=== PATIENT | female | born 1990 | race Caucasian/White ===

== ENCOUNTER 2020-12-13 02:18 | Inpatient (IN) | payer MEDICAID, SELFPAY ==
[~2020-12-13] VITALS: Ht 157.5 cm; Wt 70.5 kg
[2020-12-13] VITALS (28 sets, daily range): BP systolic 118–195; BP diastolic 61–103
[2020-12-13 04:17] LABS: HEMATOCRIT 38.3 % (36.0-47.0); HEMOGLOBIN 13.2 g/dl (12.0-15.5); MEAN CORPUSCULAR HEMOGLOBIN 32.1 pg (27.0-33.0); MEAN CORPUSCULAR HGB CONC 34.5 g/dl (32.0-36.5); MEAN CORPUSCULAR VOLUME 93.2 fl (80.0-96.0); PLATELET COUNT, AUTOMATED 174 10^3/uL (150-450); RED BLOOD COUNT 4.11 10^6/uL (4.00-5.40); WHITE BLOOD COUNT 10.7 10^3/uL (4.0-10.0)
[2020-12-13] MEDS ORDERED: LABETALOL 100MG/20ML VIAL IV STA ×2 (04:31→05:42)
[2020-12-13] MEDS ORDERED: LABETALOL 100MG/20ML VIAL As Ordered ONE (04:32)
[2020-12-13] MEDS: LR 1,000 ML IV SCH ×2 (04:35→06:18)
[2020-12-13 04:40] LABS: ALT/SGPT 22 U/L (12-78); BILIRUBIN,TOTAL 0.2 MG/DL (0.2-1.0); GLOMERULAR FILTRATION RATE > 60.0 (>60); LDH LACTATE DEHYDROGENASE 144 U/L (84-246); URIC ACID 4.4 MG/DL (2.6-6.0)
[2020-12-13] MEDS ORDERED: LR 1,000 ML IV SCH ×2 (04:45→09:55)
[2020-12-13] MEDS ORDERED: ALBU83IN INH (04:56)
[2020-12-13] MEDS ORDERED: FLON27.5 NARES (04:56)
[2020-12-13] MEDS ORDERED: PRENTAB9 PO (04:56)
[2020-12-13] MEDS ORDERED: PROZ20CA11 PO (04:56)
[2020-12-13] MEDS ORDERED: HOME MED LIST COMPLETE! XX SCH (05:00)
--- NOTE | 2020-12-13 07:59 | HPEPDOC ---
Obstetrical History & Physical General Date of Admission Dec 13, 2020 at 04:42 History of Present Illness Alley is a 30-year-old 1 at 35 weeks 6 days who was a transfer from [facility] with severe intrauterine growth restriction. This is a patient with poor care and has been noncompliant with her care. She was seen 12/11/20 after 10 weeks where she had a growth ultrasound demonstrating a fetus less than the 1st percentile with an EFW of 1600 g. She was initially admitted at hospital where she received a course of steroids. She was later transferred this morning for further management and care. Upon arrival, patient denied headache visual changes abdominal pain. She reported active movement. No vaginal bleeding leakage of fluid or contractions. She states that her blood pressure was elevated prior to discharge as well as in the ambulance. Upon arrival her blood pressures were severely elevated blood pressures, 190s over 100. Patient received 2 doses of IV labetalol shortly after arrival. Information Provided By: Patient Age: 30 : 1 Care Care: Limited Care Dating Final EDC: Jan 12, 2021 Final EDC by: 2nd trimester (US) EGA at Admission: 35 Past Medical History Past Obstetrical History : Past Obstetrical History: Primgravida [employer] History: No pertinent history Past Medical History Surgical History: Denies/None, Tonsilectomy Social History Marital Status: Single Psychosocial History: Depression * Smoker: current smoker Drugs: cocaine Allergies Coded Allergies: No Known Allergies (Verified Allergy, Unknown, 12/13/20) Medications Scheduled Fluoxetine HCl (Prozac) 20 Mg Capsule, 20 MG PO DAILY No.137/Iron/Folic Acd ( Vitamin Tablet) 1 Each Tablet, 1 TAB PO DAILY Scheduled PRN Albuterol Sulf (Albuterol Sulfate) 2.5 Mg/3 Ml Vial.neb, 2.5 MG INH Q4HP PRN for SHORTNESS OF BREATH Fluticasone Furoate (Flonase Sensimist) 5.9 Ml [place].susp, 2 PUFF NARES DAILY PRN for SHORTNESS OF BREATH Physical Examination Physical Examination GENERAL: Alert and oriented times three. BREAST: . ABDOMEN: Gravid and non-tender to touch. FETUS: Is vertex (VTX) by sterile vaginal examination (SVE), fetus is vertex (VTX) by Antonio. HEART RATE: Regular rate and rhythm. LUNGS: Clear to auscultation (CTA). Vital Signs/I&O Vital Signs Date Time Temp Pulse Resp B/P (MAP) Pulse Ox O2 Delivery O2 Flow Rate FiO2 12/13/20 06:01 78 195/103 (133) 12/13/20 03:45 96.8 Laboratory Data 24H LABS Laboratory Tests 2 12/13/20 04:03: Hepatitis B Surface Antigen NEGATIVEL 12/13/20 04:06: Nucleated Red Blood Cells % (auto) 0.0, Glomerular Filtration Rate > 60.0, Uric Acid 4.4, Total Bilirubin 0.2, Aspartate Amino Transf (AST/SGOT) 17, Alanine Aminotransferase (ALT/SGPT) 22, Lactate Dehydrogenase 144 CBC/BMP Laboratory Tests 12/13/20 04:06 Pertinent Laboratoy Data Blood Type: A+ RBC Antibody Screen: Negative Hepatitis B: Negative Anatomy Ultrasound Estimated Weight (grams): 1600 Steroid Therapy Date #1: Dec 11, 2020 Date #2: Dec 12, 2020 Vaginal Examination Dilation: None Station: -2 Cervical Consistency: Firm Cervical Position: Posterior Presentation: Cephalic presentation Assessment Variability: Moderate Decelerations: Variable Tocometer Contractions: No Assessment/Plan Assessment 30-year-old 1 at 35w6d, with intrauterine growth restriction less than the 1st percentile Preeclampsia with severe features based on severely elevated blood pressures Plan Patient has been thoroughly counseled in regards to her diagnosis. I discussed recommendation for delivery based on intrauterine growth restriction along with preeclampsia with severe features. Patient has completed a course of steroids for lung maturity. tracing overall is reassuring with intermittent variable decelerations, at time category 2 tracing. I discussed attempted induction of labor, first with a negative contraction stress test or proceeding with primary section consider remoteness from vaginal delivery in light of intrauterine growth restriction and severe preeclampsia. Discussed risks with both and after consultation patient and her family has decided to proceed with section. MILLY AVINA MD. Dec 13, 2020 07:59
[2020-12-13] MEDS ORDERED: BICITRA 30ML SOLN UDC PO ONE (08:00)
[2020-12-13] MEDS ORDERED: ceFAZolin SOD 2 GM in IV 1 EA IV ONE (08:00)
[2020-12-13] MEDS ORDERED: OXYTOCIN 30 UNITS IN 0.9% NaCl 500ML IV BAG (J2590) As Ordered ONE ×2 (08:10→10:11)
[2020-12-13] MEDS ORDERED: MORPHINE PRES-FREE INJ 10 MG/10 ML VIAL (J2274) As Ordered ONE (08:10)
[2020-12-13] MEDS ORDERED: diphenhydrAMINE 50MG/ML VIAL (J1200) IV PRN (08:44)
[2020-12-13] MEDS ORDERED: NALBUPHINE HCL 10 MG/ML AMP (J2300) IV PRN ×2 (08:44→10:50)
[2020-12-13] MEDS ORDERED: NALOXONE INJ 0.4MG/1ML VIAL (J2310 PER 1MG) IV PRN ×2 (08:44)
[2020-12-13] MEDS ORDERED: METOCLOPRAMIDE INJ 10MG/2ML VIAL (J2765 PER 1) IV PRN (08:44)
[2020-12-13] MEDS ORDERED: ONDANSETRON 4MG/2ML VIAL IV PRN ×3 (08:44→10:50)
[2020-12-13] MEDS ORDERED: ePHEDrine SULFATE 25 MG/5 ML(5MG/ML) SYRINGE As Ordered ONE (08:54)
[2020-12-13] MEDS ORDERED: KETOROLAC 60MG 2ML VIAL As Ordered ONE (08:58)
[2020-12-13] MEDS ORDERED: ONDANSETRON 4MG/2ML VIAL As Ordered ONE (08:58)
[2020-12-13] MEDS ORDERED: dexameTHASONE 4 MG/ML 1ML VIAL (J1100 PER 1MG) As Ordered ONE (08:58)
[2020-12-13] MEDS ORDERED: MAGNESIUM *L&D* 4GM/100ML BAG (40MG/ML) As Ordered ONE (09:35)
[2020-12-13] MEDS ORDERED: OXYTOCIN DRIP 30 UNITS in IV 1 EA IV SCH (09:55)
[2020-12-13] MEDS ORDERED: RHOGAM 300 MCG (1500 IU) INJ (J2790) IM SCH (09:55)
[2020-12-13] MEDS ORDERED: CALCIUM GLUCONATE 1,000 MG in D5W MINI-BAG PLUS 100 ML IV PRN (09:55)
[2020-12-13] MEDS ORDERED: MOM 30ML SUSPENSION UDC PO PRN (09:55)
[2020-12-13] MEDS ORDERED: MEASLES,MUMPS,RUBELLA VACCINE INJ (MMR-II) (90707) SC SCH (09:55)
[2020-12-13] MEDS ORDERED: SIMETHICONE 80MG CHEW TAB PO PRN (09:55)
[2020-12-13] MEDS ORDERED: MAG Sulf (L&D) 4 GM/100 ML 4 GM in IV 1 EA IV ONE (10:00)
--- NOTE | 2020-12-13 10:00 | ROOPDOC ---
[facility] Report Of Operation Report of Operation DATE OF PROCEDURE: 12/13/20 SURGEON: Autumn Londono M.D. SACK FILLER: None PROCEDURE: Primary section PREOPERATIVE DIAGNOSIS: 1. Preeclampsia with severe features remote from delivery 2. Intrauterine uterine growth restriction with less than the 1 % POSTOPERATIVE DIAGNOSIS: 1. Preeclampsia with severe features remote from delivery 2. Intrauterine uterine growth restriction with less than the 1 % ANESTHESIA: Spinal ESTIMATED BLOOD LOSS: 500 mL URINE OUTPUT: 125 mL INTRAVENOUS FLUIDS: 1900 mL of lactated Ringer's solution PREOPERATIVE ANTIBIOTICS:. 2 g of Ancef OPERATIVE FINDINGS: Liveborn male infant, Apgars 6, 8 and 9. Weight 4 pounds or 1810 g SPECIMENS: Placenta DESCRIPTION OF PROCEDURE: After informed consent was obtained and written consent was reviewed. The patient was brought to the operating room where spinal anesthesia was placed. She was then placed in the supine position with a left lateral tilt. Hemphill catheter was placed and to gravity. Patient was then prepped and draped in the normal sterile fashion. A timeout operating room was performed identifying the patient, procedure be performed as well as drug allergies. Anesthesia was tested and deemed to be adequate. Pfannenstiel skin incision was made and this was carried down to the underlying rectus fascia. The fascia was then scored and this incision was extended bilaterally. The fascia was then dissected off the underlying rectus muscle superiorly and inferiorly. The rectus muscles were then in the midline. The peritoneum is then entered. Vesicouterine peritoneum was then tented and excised and a bladder flap was created. Mobius retractor was then placed. Next, a curvilinear incision was then made in the lower uterine segment. Amniotomy was performed, productive, meconium stained fluid. The head was brought to the level of the incision atraumatically and delivered along the shoulders and corpus. The cord was clamped x2. The infant was brought over to the warmer with a good cry. Placenta was drained and delivered grossly intact. The uterus was cleared of all clots and debris and the uterine incision was then closed using 0 Vicryl in a running locking fashion followed by a second layer of 0 Vicryl in a running nonlocking fashion for imbrication. The abdomen suctioned. Surgical sites reinspected and noted be hemostatic. The retractor was then removed. The anterior peritoneum was then reapproximated with 3-0 Vicryl. The rectus muscles were reapproximated 3-0 Vicryl. The fascia was then closed using 0 Vicryl in a running nonlocking fashion. The subcutaneous tissues was then irrigated and suctioned. Subcutaneous tissue was reapproximated using 3-0 Vicryl. Several subdermal stitch is placed using 3-0 Vicryl and the skin was closed with 4-0 Monocryl and subcuticular fashion. This incision was then cleaned and dried and was dressed. The patient was then taken to recovery in stable condition. All counts were correct. . AUTUMN LONDONO MD. Dec 13, 2020 10:00
[2020-12-13] MEDS ORDERED: MAGNESIUM SULFATE 4% INJ 20GM/500ML (40MG/ML) As Ordered ONE (10:26)
[2020-12-13] MEDS: MAG Sulf (OBGYN) 20GM/500ML 20,000 MG in IV 1 EA IV SCH ×2 (10:41→19:34)
[2020-12-13] MEDS ORDERED: HYDROMORPHONE HCL 0.5 MG/ 0.5 ML SYRINGE (J1170 PER 1) IV PRN (10:50)
[2020-12-13] MEDS ORDERED: oxyCODONE 5MG TAB PO PRN (10:50)
[2020-12-13] MEDS ORDERED: fentaNYL 100 MCG/2 ML INJECTION (J3010) IV PRN (10:50)
[2020-12-13] MEDS ORDERED: MEPERIDINE INJ 25 MG/ML VIAL (J2175) IV PRN (10:50)
[2020-12-13] MEDS: KETOROLAC 30 MG/ML 1ML VIAL IV SCH ×2 (16:20→22:04)
[2020-12-13] MEDS: DOCUSATE SODIUM 100MG CAPSULE PO SCH (22:05)
[2020-12-13] MEDS ORDERED: NICOTINE 21MG/24HR 1 EA TRANSDERMAL TD SCH (23:00)
[2020-12-14 02:00] VITALS: BP 110/59
[2020-12-14] MEDS: KETOROLAC 30 MG/ML 1ML VIAL IV SCH (04:07)
[2020-12-14 06:00] VITALS: BP 103/58
[2020-12-14 07:28] LABS: HEMATOCRIT 32.7 % (36.0-47.0); MEAN CORPUSCULAR HEMOGLOBIN 32.1 pg (27.0-33.0); MEAN CORPUSCULAR HGB CONC 33.6 g/dl (32.0-36.5); MEAN CORPUSCULAR VOLUME 95.3 fl (80.0-96.0); PLATELET COUNT, AUTOMATED 129 10^3/uL (150-450); RED BLOOD COUNT 3.43 10^6/uL (4.00-5.40); WHITE BLOOD COUNT 13.6 10^3/uL (4.0-10.0)
[2020-12-14] MEDS ORDERED: NICOTINE 21MG/24HR 1 EA TRANSDERMAL TD SCH (07:37)
[2020-12-14] MEDS: PRENATAL VITAMINS CHEWABLE TABLET PO SCH (08:12)
[2020-12-14] MEDS: DOCUSATE SODIUM 100MG CAPSULE PO SCH ×2 (08:12→20:39)
[2020-12-14] MEDS: FLUoxetine 20 MG CAP PO SCH (08:12)
[2020-12-14] MEDS: PERCOCET 5MG/325MG TAB PO PRN ×3 (08:13→22:35)
--- NOTE | 2020-12-14 08:24 | IPNPDOC ---
Progress Note Date of Service: Dec 14, 2020 Progress Note SUBJECT: Patient is currently off magnesium sulfate for neuro protection following delivery. She is remained asymptomatic denying headache visual changes. Doing well without complaints. Ambulating, voiding and pain is well- controlled. Reports minimal lochia. OBJECTIVE: VITAL SIGNS: Within normal limits, afebrile. Alert and oriented times three. Abdomen: Fundus firm at U-2. Soft, NTTP. Incision: dressed Ext: neg calf tenderness. ASSESSMENT: /postoperative day #1 status post delivery. Recovering in stable condition. Preeclampsia with severe featuresstable PLAN: 1. Continue routine /postoperative care 2. Discharge plans for tomorrow VS, I&O, 24H, Fishbone Vital Signs/I&O Vital Signs Date Time Temp Pulse Resp B/P (MAP) Pulse Ox O2 Delivery O2 Flow Rate FiO2 12/14/20 08:13 18 12/14/20 06:00 97.0 92 103/58 (73) 100 Room Air l I&O- Last 24 Hours up to 6 AM 12/14/20 05:59 Intake Total 3527.3 ml Output Total 3350 ml Balance 177.3 ml Laboratory Data 24H LABS Laboratory Tests 2 12/14/20 06:47: Nucleated Red Blood Cells % (auto) 0.0 CBC/BMP Laboratory Tests 12/14/20 06:47 MILLY AVINA MD. Dec 14, 2020 08:24
[2020-12-14 10:00] VITALS: BP 130/63
[2020-12-14] MEDS: IBUPROFEN 800 MG TAB PO SCH ×2 (12:00→20:39)
[2020-12-14 14:00] VITALS: BP 114/65
[2020-12-14 17:56] VITALS: BP 120/76
[2020-12-14] MEDS ORDERED: BOOSTRIX/ADACEL VACCINE (DIPHTH/PERTUSS/ACELL/TETANUS) 0.5ML SYR IM ONE (18:00)
[2020-12-14 22:00] VITALS: BP 124/71
[2020-12-15 02:00] VITALS: BP 158/80
[2020-12-15] MEDS: IBUPROFEN 800 MG TAB PO SCH ×3 (04:02→20:49)
[2020-12-15 06:00] VITALS: BP 141/76
--- NOTE | 2020-12-15 07:39 | IPNPDOC ---
Progress Note Date of Service: Dec 15, 2020 Day#: 1 Progress Note SUBJECT: Patient is currently off magnesium sulfate for neuro protection follo wing delivery. She is remained asymptomatic denying headache visual changes. Doing well without complaints. Ambulating, voiding and pain is well-controlled. Reports minimal lochia. OBJECTIVE: VITAL SIGNS: mildly elevated BPs , afebrile. Alert and oriented times three. Abdomen: Fundus firm at U-2. Soft, NTTP. Incision: dressed Ext: neg calf tenderness. ASSESSMENT: /postoperative day #1 status post delivery. Recovering in stable condition. Preeclampsia with severe featuresstable PLAN: 1. Continue routine /postoperative care 2. May consider discharge tomorrow VS, I&O, 24H, Fishbone Vital Signs/I&O Vital Signs Date Time Temp Pulse Resp B/P (MAP) Pulse Ox O2 Delivery O2 Flow Rate FiO2 12/15/20 06:00 97.0 57 16 141/76 (97) 100 Room Air MILLY AVINA MD. Dec 15, 2020 07:39
[2020-12-15 10:00] VITALS: BP 174/81
[2020-12-15] MEDS ORDERED: BOOSTRIX/ADACEL VACCINE (DIPHTH/PERTUSS/ACELL/TETANUS) 0.5ML SYR IM ONE (10:00)
[2020-12-15] MEDS: PRENATAL VITAMINS CHEWABLE TABLET PO SCH (10:26)
[2020-12-15] MEDS: DOCUSATE SODIUM 100MG CAPSULE PO SCH ×2 (10:26→20:49)
[2020-12-15] MEDS: FLUoxetine 20 MG CAP PO SCH (10:27)
[2020-12-15 10:30] VITALS: BP 140/82
[2020-12-15 18:00] VITALS: BP 132/72
[2020-12-15 22:00] VITALS: BP 121/74
[2020-12-15] MEDS: PERCOCET 5MG/325MG TAB PO PRN (22:25)
[2020-12-16 02:00] VITALS: BP 140/69
[2020-12-16] MEDS: IBUPROFEN 800 MG TAB PO SCH ×2 (04:19→12:02)
[2020-12-16 06:00] VITALS: BP 139/73
[2020-12-16] MEDS ORDERED: NICOTINE 21MG/24HR 1 EA TRANSDERMAL TD SCH (09:00)
[2020-12-16] MEDS: DOCUSATE SODIUM 100MG CAPSULE PO SCH (09:09)
[2020-12-16] MEDS: PRENATAL VITAMINS CHEWABLE TABLET PO SCH (09:09)
[2020-12-16] MEDS: FLUoxetine 20 MG CAP PO SCH (09:15)
[2020-12-16 10:00] VITALS: BP 142/91
[2020-12-16] MEDS ORDERED: IBUP-1022 PO (16:13)
[2020-12-16] MEDS ORDERED: OXYC1TAB23 PO (16:22)
== END 2020-12-16 12:00 | disposition home or self-care (01) | DRG 540 ==
LOC: M LDO 02:18 → M LDI 04:42 → M OBS 22:36
PROVIDERS: ADMIT Obstetrics & Gynecology; ATTEND Obstetrics & Gynecology
PROC: 10D00Z1 Extraction of Products of Conception, Low, Open Approach (ICD-10-PCS; principal; 2020-12-13 09:00)
DX: O14.14 Severe pre-eclampsia complicating childbirth (principal); F17.200 Nicotine dependence, unspecified, uncomplicated; Z37.0 Single live birth; O99.334 Smoking (tobacco) complicating childbirth; Z3A.35 35 weeks gestation of pregnancy; O09.30 Supervision of pregnancy with insufficient antenatal care, unspecified trimester; Z91.19 Patient's noncompliance with other medical treatment and regimen; O36.5990 Maternal care for other known or suspected poor fetal growth, unspecified trimester, not applicable or unspecified